=== PATIENT | female | born 1955 | race Caucasian/White ===

== ENCOUNTER → 2021-03-06 | Outpatient (CLI) | payer MEDICARE | LOC: HEART CORB 09:48 | DX: R07.2 Precordial pain (principal); I10 Essential (primary) hypertension; F17.200 Nicotine dependence, unspecified, uncomplicated | CPT/HCPCS: 78452; A9502 ==

== ENCOUNTER → 2021-10-20 | Day surgery (SDC) | payer MEDICARE ==
[~2021-10-20] VITALS: Ht 167.6 cm; Wt 67.1 kg
[~2021-10-20] MED LIST: HYDROCODON-ACE1 EAC2 PO; HYDROCODONE-AC1 EACH PO; LISINOPRIL-HCT1 EACH PO
[2021-10-20 07:59] LABS: BUN/CREATININE RATIO 25 (0-10)
== END | disposition home or self-care (01) ==
LOC: OR 07:04
PROVIDERS: Orthopaedic Surgery
DX: S52.551A Other extraarticular fracture of lower end of right radius, initial encounter for closed fracture (principal); W18.49XA Other slipping, tripping and stumbling without falling, initial encounter; Y93.01 Activity, walking, marching and hiking; G89.18 Other acute postprocedural pain; I10 Essential (primary) hypertension; K21.9 Gastro-esophageal reflux disease without esophagitis; E78.5 Hyperlipidemia, unspecified; Z88.2 Allergy status to sulfonamides; Z88.5 Allergy status to narcotic agent; Z79.899 Other long term (current) drug therapy
CPT/HCPCS: 36415; 73110; 76000; 80048; C1713; J0690; J1100; J2250; J2370; J2405; J2704; J2795; J3010; J7120